=== PATIENT | male | born 2000 | race Caucasian/White ===

== ENCOUNTER 2023-05-10 09:38 | Emergency (ER) | payer BC, SELFPAY ==
--- NOTE | ~2023-05-10 | XR_ITS ---
EXAMINATION: XR knee RT min 4V DATE: 05/10/2023 10:05 INDICATION: Anterior right knee pain and swelling and pain with bearing weight. TECHNIQUE: Anteroposterior, 2 oblique and crosstable lateral views of the right knee were obtained COMPARISON: None. FINDINGS: Alignment is normal. No fracture. Joint spaces appear normal with no evident osteophytosis. No joint effusion/layering lipohemarthrosis. Moderate prepatellar soft tissue swelling. IMPRESSION: 1. Nonspecific moderate prepatellar soft tissue swelling. No right knee joint effusion or osseous abn ormality. Reviewed, dictated and finalized at location B. IMPRESSION: 1. Nonspecific moderate prepatellar soft tissue swelling. No right knee joint e ffusion or osseous abnormality.
[2023-05-10 09:43] VITALS: BP 120/76; PULSE 68; RESP 18; TEMP 36.4; O2SAT 100
--- NOTE | 2023-05-10 10:15 | ED.EXTPRO ---
HPI - Extremity Problem General Chief complaint: Extremity Problem,Nontraumatic Stated complaint: Fluid on Right knee Time Seen by Provider: 05/10/23 09:52 Source: patient Mode of arrival: ambulatory Limitations: no limitations History of Present Illness HPI Narrative: Patient is a 23 y/o female who presents to the ED with c/o R knee swelling. Patient reports he first noticed mild swelling in his right anterior knee a couple of days ago. He began having pain and an area of redness yesterday. He notes he feels stiff for a brief period after he is stationary, though his knee loosens up quickly when he begins walking. He is able to ambulate still. He has not taken anything for pain. Denies any fevers. Sent from urgent care for further evaluation. Patient denies any known injury. Denies any known wounds. Denies prolonged kneeling. Related Data Allergies Allergy/AdvReac Type Severity Reaction Status Date / Time No Known Allergies Allergy Verified 05/10/23 09:52 Review of Systems Review of Systems: CONSTITUTIONAL: Denies fever, chills, or sweats. SKIN: See HPI. MUSCULOSKELETAL: See HPI. NEUROLOGIC: Denies headache, numbness, or weakness. All systems reviewed & are unremarkable except as noted in HPI and below Exam Narrative: GENERAL: Well appearing, thin, non-toxic, in no acute distress. HEAD: Normocephalic, atraumatic. NECK: Supple. No adenopathy, no masses. RESPIRATORY: Airway patent, respirations nonlabored. Clear to auscultation bilaterally, no rales, rhonchi, wheezing. CARDIOVASCULAR: Regular rate and rhythm without murmurs, rubs, or gallops. Pedal pulses 2+ and equal bilaterally. MUSCULOSKELETAL: Moves all extremities. Full extension of right knee, minimal limitation in flexion past 45 degrees due to swelling. Mild swelling noted to right anterior knee. Mild tenderness diffusely throughout right knee. Small area of erythema over right anterior knee, localized region with sharp borders, with minimal warmth. No wounds. SKIN: Warm, dry, normal color. No rashes. NEURO: A&O X3. Speech clear. Cranial nerves II-XII grossly intact. Steady gait. No ataxic movements. PSYCHIATRIC: Appropriate mood and affect. Normal interaction. Course Vital Signs Vital signs: Vital Signs Temperature 97.5 F L 05/10/23 09:43 Pulse Rate 68 05/10/23 09:43 Respiratory Rate 18 05/10/23 09:43 Blood Pressure 120/76 05/10/23 09:43 Pulse Oximetry 100 05/10/23 09:43 Oxygen Delivery Room Air 05/10/23 09:43 Temperature 97.5 F L 05/10/23 09:43 Pulse Rate 68 05/10/23 09:43 Respiratory Rate 18 05/10/23 09:43 Blood Pressure 120/76 05/10/23 09:43 Pulse Oximetry 100 05/10/23 09:43 Oxygen Delivery Room Air 05/10/23 09:43 MDM - Extremity (Nontraumatic) MDM Narrative Medical decision making narrative: Patient presented to ED with several day history of pain and swelling to right knee. No known injury. Vitals stable. Exam with anterior knee swelling, small localized area of redness and minimal warmth. X-ray showing prepatellar soft tissue swelling, no joint effusion or osseous abnormality. Exam consistent with prepatellar bursitis. Patient does kneel at work occasionally. He is still able to move and bend/flex his knee. He has been able to ambulate, ambulatory in the ED without issue. I have low suspicion for septic arthritis at this time given reassuring exam and x-ray. Will Rx Keflex for possible overlying cellulitis given redness. Advised patient to rest, ice, elevate, take antiinflammatories for Tx of bursitis. Will provide orthopedic information for f/u if needed. Patient given very strict return precautions. Patient and mother voiced understanding and agreed with plan. Discharged in stable condition. Medical Records Attestation: I reviewed the patient's medical records. Imaging Data Attestation: I personally reviewed and interpreted this imaging study as follows: Radiologist's impression:
[2023-05-10] MEDS: CEPHALEXIN 500 MG CAPSULE PO (10:51)
[2023-05-10] MEDS: KETOROLAC (*BKC) 60 MG/2 ML VIAL IM (10:51)
== END 2023-05-10 11:10 | disposition home or self-care (01) ==
PROVIDERS: Emergency Provider Physician Assistant
DX: M70.41 Prepatellar bursitis, right knee (principal)
CPT/HCPCS: 73564; 96372; 99283; A9270; J1885

== ENCOUNTER 2023-05-13 13:25 | Emergency (ER) | payer BC, SELFPAY ==
[2023-05-13 13:35] VITALS: BP 114/59; PULSE 83; RESP 20; TEMP 36.7; O2SAT 100
--- NOTE | 2023-05-13 14:24 | ED.EXTPRO ---
HPI - Extremity Problem General Chief complaint: Extremity Problem,Nontraumatic Stated complaint: bursitis, getting worse Time Seen by Provider: 05/13/23 14:01 History of Present Illness HPI Narrative: Patient is a 23-year-old male presenting with right knee pain. Patient states that he was seen here 3 days ago and was diagnosed with prepatellar bursitis. He was started on antibiotics due to some redness. States that he has been taking the medications as prescribed. States that his pain has improved but some of the redness has now moved to the sides of his knee. States that those areas feel a little bit sore as well. Patient states he is ambulating easily. He reports mild pain with range of motion. No fevers or chills, vomiting, or other systemic symptoms. Denies further complaints. Related Data Allergies Allergy/AdvReac Type Severity Reaction Status Date / Time No Known Allergies Allergy Verified 05/10/23 09:52 Review of Systems Review of Systems: All systems reviewed & are unremarkable except as noted in HPI and below Exam Narrative: GENERAL: Well-appearing, well-nourished, and in no acute distress. HEAD: Normocephalic, atraumatic. EYES: PERRLA and EOMI. ENT: Nares clear, no rhinorrhea or epistaxis. Mucous membranes moist. NECK: Supple. CHEST: No respiratory distress. HEART: Regular rate and rhythm. Normal peripheral pulses. ABDOMEN: Nondistended EXTREMITIES: Normal range of motion. +mild prepatellar edema of right knee with mild overlying erythema, slight erythema extends bilaterally around knee; mild tenderness of the erythematous regions; active ROM is fully intact, no lympangitic spread, distal pulses 2+ SKIN: Warm, dry, as above NEURO: No focal deficits. Alert and oriented x3. PSYCH: Normal mood and affect. Course Vital Signs Vital signs: Vital Signs Temperature 98.0 F 05/13/23 13:35 Pulse Rate 83 05/13/23 13:35 Respiratory Rate 20 05/13/23 13:35 Blood Pressure 114/59 L 05/13/23 13:35 Pulse Oximetry 100 05/13/23 13:35 Oxygen Delivery Room Air 05/13/23 13:35 Temperature 98.0 F 05/13/23 13:35 Pulse Rate 83 05/13/23 13:35 Respiratory Rate 20 07/10/23 13:35 Blood Pressure 114/59 L 05/13/23 13:35 Pulse Oximetry 100 05/13/23 13:35 Oxygen Delivery Room Air 05/13/23 13:35 MDM - Extremity (Nontraumatic) MDM Narrative Medical decision making narrative: Patient is a 23-year-old male presenting with right knee redness. Vitals are stable. Patient is very well-appearing and in no acute distress. Exam is remarkable for the above. He does appear to have a cellulitis involving his knee and it extends bilaterally. Range of motion is fully intact. He is only very mildly tender. I do not suspect a septic joint at this time. We will broaden his antibiotic coverage and I advised him that he needs to call the orthopedic surgeon today for close follow-up. We will give him a dose of Bactrim here and send in a prescription. Strict return precautions were given. Patient voiced understanding and is agreeable with plan. Discharged in stable condition. Differential Diagnosis Differential diagnosis: Likely cellulitis and other (bursitis, septic joint) Medical Records Attestation: I reviewed the patient's medical records. Critical Care Time Critical Care Time Critical Care Time: No Discharge Plan Discharge Clinical Impression: Cellulitis Patient Disposition: Home, Self-Care Condition: Stable Instructions: Antibiotic Form, Cellulitis (ED), Knee Bursitis (ED) Additional Instructions: Please start the new antibiotics as prescribed. We recommend finishing the other antibiotics as well. Please call the orthopedic surgeon today to schedule close follow-up. If your symptoms worsen, you have difficulty moving the joint, develop fevers or vomiting, or other concerning symptoms arise, please return to the ER. Prescriptions: New sulfamethoxazole-trimethoprim
[2023-05-13] MEDS: SULFAMETHOXAZOLE/TRIMETHOPRIM 800/160 MG DS TABLET 1 TAB PO (14:33)
== END 2023-05-13 14:45 | disposition home or self-care (01) ==
PROVIDERS: Emergency Provider Emergency Medicine
DX: L03.115 Cellulitis of right lower limb (principal)
CPT/HCPCS: 99283; A9270